=== PATIENT | female | born 1995 | race Caucasian/White ===

== ENCOUNTER 2019-04-13 19:47 | Emergency (ER) | payer MEDICAID ==
[~2019-04-13] VITALS: Ht 165.1 cm; Wt 68.0 kg
[2019-04-13 19:56] VITALS: BP 128/90
== END 2019-04-13 22:33 | disposition left against medical advice (07) ==
LOC: ER 20:00
DX: R10.9 Unspecified abdominal pain (principal); Z53.21 Procedure and treatment not carried out due to patient leaving prior to being seen by health care provider